=== PATIENT | female | born 1965 | race Caucasian/White ===

== ENCOUNTER → 2018-10-28 | Outpatient (CLI) | payer BC ==
[~2018-10-28] VITALS: Ht 157.5 cm; Wt 61.7 kg
[~2018-10-28] MED LIST: CORAL CALCIUM1 EACH PO; FISH OIL 1,0001 EAC6 PO; FLEXERIL PO; HUMALOG100 UNIT/1 SUBQ; MUCUS ER1200 MG PO; RAMIPRIL5 MG PO; TRESIBA FL100 UNIT/1 SUBQ; WAL-FEX ALLERG180 MG
--- NOTE | ~2018-10-28 | HPC ---
[facility] [place] [address] PAIN MANAGEMENT CONSULTATION Name: PARMJIT MACARIO Room #: REG KRANTHI Bowen#: [id number] Admission: 10/28/18 Attend Phys: Yung Batista DO Discharge: Date of : 67 Report #: [id number] THIS REPORT FOR: //name// CC: Deepti Batista DATE OF SERVICE: 10/28/2018 REFERRING PHYSICIAN: Nurse practitioner, JUNIOR Nugent. CHIEF COMPLAINT: Low back pain and left lower extremity pain with paresthesias. HISTORY OF PRESENT ILLNESS: As you know, the patient is a 53-year-old female who had acute onset of low back pain, left lower extremity pain and presented in July of 2018. She denies specific injury or trauma that may have led to symptom development. She indicates pain has progressively worsened. She sought evaluation through her primary care physician who sent the patient for physical therapy. She has undergone 6 weeks of physical therapy without significant improvement. Due to lack of improvement, the patient was then referred to Neurosurgery to discuss treatment options. It was noted that the patient has L4-L5 grade 2 spondylolisthesis with bilateral pars defects with plans to undergo possible TLIF of L4-L5 and a lumbar ALIF surgery in February to March. 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 She has been referred to our service to discuss possibly undergoing epidural injections under fluoroscopic guidance to address lumbar radicular symptoms and to address ongoing pain issues. The patient indicates the pain is steady and constant. Today, she describes the pain as aching, sharp and tender with intermittent numbness and tingling. She places current pain score 4-5/10. She reports daily average at 6/10. The worst pain has been is 8/10. The patient indicates pain is exacerbated with walking and standing, improves with lying and sitting down. She has been referred to our service to treat lumbar radicular symptoms secondary to the findings at the L4-L5 level in hopes of improving pain as we await possible surgical option in February to March. The patient has undergone flexion and extension films of the lumbar spine, which showed no current pathologic movement, which would mean we do not need to move forward with surgery rapidly, we can treat conservatively initially and if this is ineffective, then look toward surgical options. PAST MEDICAL HISTORY: 1. Diabetes mellitus type 2. 2. Chronic anemia. 3. Hypertension. 4. Hypothyroidism. 5. Seasonal allergies. [address] [address] PAIN MANAGEMENT CONSULTATION Name: AMIRAHPARMJIT Room #: REG CL Andrés#: [id number] Admission: 10/28/18 Attend Phys: Yung Batista DO Discharge: Date of : 67 Report #: [id number] PAST SURGICAL HISTORY: Carpal tunnel release in 1998 and again in 2001, open reduction and internal fixation of ankle in 1996, appendectomy in 1979 and section in 1996 and 2001. SOCIAL HISTORY: The patient denies tobacco or IV or illicit drug use. Admits to one alcoholic beverage per day. She is currently employed as a teacher. She is working, not receiving workmen's compensation nor is trying to obtain as the benefits. She is not in litigation in regards to pain. She is accompanied by her who is present in room today. REVIEW OF SYSTEMS: Positive for fatigue and weakness, wearing corrective eyewear, changes in bowel movement, constipation, painful menses, thyroid disease, heat and cold intolerance, insulin-dependent diabetes, chronic anemia and chronic low back pain. All other review of systems negative per 12-point review of systems other than those listed in history of present illness. PAIN SCORE: Pain impact score 35/70 indicating moderate interference of daily activities secondary to pain. ALLERGIES: No known drug allergies. CURRENT MEDICATIONS: 1. Cyclobenzaprine 10 mg t.i.d. p.r.n. pain. 2. Calcium carbonate 1 tab per day. 3. Valier-3 fish oil 1 tab per day. 4. Guaifenesin 1200 mg once a day. 5. Fexofenadine 180 mg once a day. 6. Ramipril 5 mg per day. 7. Insulin lispro sliding scale. 8. Tresiba 100 units in the morning. IMAGING DATA: MRI lumbar spine obtained 10/21/2018 shows L1-L2, L2-L3, L3-L4 unremarkable. At L4-L5, there is a grade 2 anterolisthesis of L4 on L5 that appears stable. Bilateral L4 pars defects with degenerative changes noted. L5-S1 posterior disk bulge with minimal narrowing, facet arthropathy present. Flexion and extension films of the lumbar spine showed no abnormal motion identified between flexion and extension. PHYSICAL EXAMINATION: VITAL SIGNS: Blood pressure 123/78, pulse 62 and respiratory rate 14 and unlabored. The patient is 100% on room air. Height 5 feet 2 inches tall, weight 136 pounds and BMI calculated 24.9. GENERAL: Well-developed, well-nourished and well-hydrated 53-year-old female, appears her stated age, placing current pain score somewhere between 4-5/10. [address] [address] PAIN MANAGEMENT CONSULTATION Name: PARMJIT MACARIO Room #: REG KRANTHI Bowen#: [id number] Admission: 10/28/18 Attend Phys: Yung Batista DO Discharge: Date of : 67 Report #: [id number] HEENT: Normocephalic and atraumatic. Pupils equal, round and reactive to light. Extraocular muscles are intact. Sclerae nonicteric without injection. NEUROLOGICAL: Cranial nerves 2 through 12 grossly intact. Speech is fluent. The patient deemed a good historian. LUNGS: Clear, without wheezes, rhonchi or rales. CARDIOVASCULAR: Regular. ABDOMEN: Soft and nontender. EXTREMITIES: Show no clubbing, no cyanosis and no edema. MUSCULOSKELETAL: Lower extremity strength appears symmetrical 5/5. Slight giveaway strength noted with hip flexion on the left when compared to the right. Seated straight leg raising negative. Supine straight leg raising positive on the left. Kwasi's test positive left, negative right. Ankle clonus negative. Babinski is negative. Muscle bulk and tone equal and symmetrical in lower extremities. Deep tendon reflexes are 2+/4 patella and Achilles and symmetrical. Lumbar provocation testing is met with increasing axial back pain, no radiation of symptoms. ASSESSMENT: 1. Symptomatic lumbar radiculopathy. 2. Spondylolisthesis of the L4 on L5. 3. Spinal stenosis of the lumbar spine. 4. Facet arthropathy of the lumbar spine. 5. Degeneration of the lumbar spine. 6. Chronic intractable pain. PLAN: 1. Based on today's physical exam and history, the patient has provided the description the patient uses in regards to pain as well as the location of symptoms and the findings of her MRI. Likely source of the patient's pain is a lumbar radiculopathy secondary to the grade 2 spondylolisthesis and subsequent central canal and neural foraminal stenosis at that level. We discussed with the patient conservative treatment options in hopes of improving pain and following was discussed with the patient today on treatment options we can provide to reduce overall pain and potentially improve overall function. We discussed physical therapy, stretching exercises, core strengthening for which the patient has been involved and is continuing to do at home. We discussed medication management, adding neuropathic pain medication and consistent nonsteroidal anti-inflammatories. We discussed lumbar epidural injections for which the patient was referred to our clinic. We also discussed spinal cord stimulator therapy and surgical options for which the patient has plans to undergo surgery in late February or early March. After reviewing the risks and benefits of all proposed treatment options, the patient requested to undergo lumbar epidural injection under fluoroscopic guidance. The patient was advised that third republican payer restrictions require that [address] [address] PAIN MANAGEMENT CONSULTATION Name: PARMJIT MACARIO Room #: REG CLI Andrés#: [id number] Admission: 10/28/18 Attend Phys: Yung Batista DO Discharge: Date of : 67 Report #: [id number] authorization be obtained before the patient could undergo an epidural injection under fluoroscopic guidance. We will make appointment with the patient to return to our clinic at the earliest possible time once we have achieved this authorization for the patient to undergo the epidural injection. We will keep the patient apprised of our progress with the authorization and have her return once this has been completed. 2. No medication changes were made at today's visit. The patient requested that we make no changes in her current therapy, but we will consider this as an option if necessary based on the efficacy of the epidural injection proposed. She is to continue current medication management as prior prescribed. 3. We will see the patient back in followup visit once we have achieved authorization for the patient to undergo a lumbar epidural injection under fluoroscopic guidance. 4. We wish to thank nurse practitioner, Samira Rivero for the referral of this patient to our clinic. We will keep you apprised of her response to treatment as we address lumbar radicular symptoms secondary to the findings at the L4-L5 level. Again, we wish to thank you for the opportunity to see the patient in consultation. By: [id number] Yung Batista DO /nt
[2018-10-28 08:40] VITALS: BP 123/78
--- NOTE | 2018-10-28 09:14 | NUR ---
Pain Clinic Assessment: 1. History of Osteoarthritis: History of Rheumatoid Arthritis: 2. Height: 5 ft. 2 in. 157.5 cm. Weight: 136.0 lb. oz. 61.689 kg. Patient's BMI: 24.9 3. Vital Signs: BP: 123/78 Pulse: 62 Resp: 14 Temp: 02 Sat: 100 ECG Mon: 4. Pain Intensity: 4-5 5. Fall Risk: Dizziness: N Needs help standing or walking: N Fallen in the last 3 months: N Fall risk comments: 6. Patient on Blood Thinner: None 7. History of Hypertension: Y 8. Opioid Therapy greater than 6 weeks: N Opiate Contract Signed: 9. Risk Assessment Tool Provided: 10. Functional Assessment Tool: 11. Recreational Drug Use: Never Drug Type: Tobacco Use: Never Smoker Tobacco Type: Amount or Packs/day: How Many Years: Alcohol Use: Yes Frequency: Daily Quant: 0-1
== END ==
LOC: PAIN 06:56
DX: M54.5 Low back pain (principal); M25.552 Pain in left hip; R10.30 Lower abdominal pain, unspecified; Z79.899 Other long term (current) drug therapy

== ENCOUNTER → 2018-11-03 | Outpatient (CLI) | payer BC ==
[~2018-11-03] VITALS: Ht 157.5 cm; Wt 64.0 kg
[2018-11-03 14:30] VITALS: BP 145/76
--- NOTE | 2018-11-03 14:33 | NUR ---
Pain Clinic Assessment: 1. History of Osteoarthritis: Not Applicable History of Rheumatoid Arthritis: Not Applicable 2. Height: 5 ft. 2 in. 157.5 cm. Weight: 141.0 lb. oz. 63.957 kg. Patient's BMI: 25.8 3. Vital Signs: BP: 145/76 Pulse: 81 Resp: 16 Temp: 02 Sat: 99 ECG Mon: 4. Pain Intensity: 7 5. Fall Risk: Dizziness: N Needs help standing or walking: N Fallen in the last 3 months: N Fall risk comments: 6. Patient on Blood Thinner: None 7. History of Hypertension: Y 8. Opioid Therapy greater than 6 weeks: N Opiate Contract Signed: 9. Risk Assessment Tool Provided: 0-LOW 10. Functional Assessment Tool: 11. Recreational Drug Use: Never Drug Type: Tobacco Use: Never Smoker Tobacco Type: Amount or Packs/day: How Many Years: Alcohol Use: Yes Frequency: Daily Quant: 1
--- NOTE | 2018-11-11 10:54 | HPC ---
[facility] [place] [address] PAIN MANAGEMENT CONSULTATION Name: PARMJIT MACARIO Room #: REG KRANTHI Bowen#: [id number] Admission: 11/03/18 Attend Phys: Yung Batista DO Discharge: Date of : 67 Report #: [id number] THIS REPORT FOR: //name// CC: Deepti Batista DATE OF SERVICE: 11/03/2018 CHIEF COMPLAINT: Low back pain, left lower extremity pain and paresthesias. HISTORY OF PRESENT ILLNESS: As you know, the patient is a 53-year-old female who had acute onset of low back pain, left lower extremity pain that presented in July 2018. Denies specific injury or trauma that led to symptom development. The patient was seen by [facility]surgery of [facility] after undergoing physical therapy for 6 weeks without significant improvement. Neurosurgery evaluated the patient. She was noted to have an L4-L5 grade 2 spondylolisthesis with bilateral pars defects with plans to undergo possible TLIF of L4-L5 level in February or March. She was referred to our clinic to trial more conservative options in hopes of decreasing the necessity of the patient to undergo surgery. She was seen in consultation 10/28/2018, diagnosed with lumbar radiculopathy secondary to spondylolisthesis at the L4-L5 level and established an appointment for today to undergo the first in a series of lumbar epidural injections as we did require authorization to be obtained before the patient could undergo the procedure. We have achieved this authorization and this was the first available appointment for the patient to return to undergo an epidural injection. She is placing pain score today at approximately 7/10, states her pain is constant, sharp, numbness, tingling, exacerbated with walking and standing, improves with sitting and repositioning. She returns today to undergo the first in a series of requested epidural injections under fluoroscopic guidance. ALLERGIES: No known drug allergies. CURRENT MEDICATIONS: Cyclobenzaprine, calcium carbonate, omega 3 fish oil, guaifenesin, fexofenadine, ramipril, insulin. SOCIAL HISTORY: The patient denies tobacco, IV or illicit drug use. She admits to one alcoholic beverage per day. She is currently employed as a teacher. She is working, not receiving workmen's compensation, unaccompanied today. IMAGING: There is no new imaging available. PHYSICAL EXAMINATION: VITAL SIGNS: Blood pressure 145/76, pulse 81, respiratory rate 16 and unlabored, the patient 99% on room air. Height 5 feet 2 inches tall, weight [address] [place] [address] PAIN MANAGEMENT CONSULTATION Name: PARMJIT MACARIO Room #: REG [facility]#: [id number] Admission: 11/03/18 Attend Phys: Yung Batista DO Discharge: Date of : 67 Report #: [id number] pounds, BMI calculated 25.8. GENERAL: Well-developed, well-nourished, well-hydrated 53-year-old female appearing her stated age, placing current pain score at approximately 7/10. HEENT: Normocephalic, atraumatic. Pupils are equal, round, reactive to light. Extraocular muscles are intact. Sclerae are nonicteric without injection. NEUROLOGIC: Cranial nerves 2-12 grossly intact. Speech is fluent. EXTREMITIES: Show no clubbing, no cyanosis, no edema. MUSCULOSKELETAL: There is slight giveaway strength noted again with hip flexion, knee extension on the left when compared to the right. Seated straight leg raising negative. Supine straight leg raising positive on the left. Kwasi's test is positive on the left, negative right. Ankle clonus negative. Babinski is negative. Gait antalgic favoring left lower extremity over right. ASSESSMENT: 1. Symptomatic lumbar radiculopathy. 2. Grade 2 spondylolisthesis of L4 on L5. 3. Spinal stenosis of lumbar spine. 4. Facet arthropathy of the lumbar spine. 5. Lumbar degeneration. 6. Chronic intractable pain. PLAN: 1. The patient has returned today in followup visit having received precertification to undergo the first in a series of lumbar epidural injections under fluoroscopic guidance. The patient and I discussed today the risks and the benefits of this procedure. These risks include but are not necessarily limited to bleeding, bruising, infection, worsening pain, no relief of pain, also risk of temporary or permanent muscle weakness, temporary or permanent nerve damage, possible paralysis, post-dural puncture headache and . The patient states understood and wished to proceed. 2. No medication changes made at today's visit. The patient will continue current medical therapy as previously prescribed. 3. We will see the patient back in followup visit in 31 days. At that time, review the efficacy of today's epidural injection and determine if next in a series of epidural injections might be necessary. PROCEDURE NOTE DESCRIPTION OF PROCEDURE: L5-S1 left paramedian epidural steroid injection under fluoroscopic guidance. This is the first procedure of the first series that the patient is undergoing. After obtaining written consent, the patient was taken back to the fluoroscopy suite, placed in a prone position with pillow under the abdomen to decrease lumbar lordosis. The skin overlying the lumbosacral area was then prepped and [address] [address] PAIN MANAGEMENT CONSULTATION Name: PARMJIT MACARIO Room #: REG KRANTHI Bowen#: [id number] Admission: 11/03/18 Attend Phys: Yung Batista DO Discharge: Date of : 67 Report #: [id number] draped in aseptic fashion. The L5-S1 vertebral interspace was then identified by AP fluoroscopy. The skin and subcutaneous tissue overlying the target site of injection was anesthetized with 3 mL 1% lidocaine. A(n) 20-gauge 3-1/2 inch Tuohy needle was then advanced under fluoroscopic guidance towards the epidural space using a left paramedian approach. The epidural space was identified using loss of resistance to air technique. After negative aspiration for heme or cerebrospinal fluid, a total of 1 mL of Omnipaque was injected. A lumbar epidurogram was confirmed using both AP and lateral fluoroscopy. After negative aspiration for heme or cerebrospinal fluid, 1 mL of solution containing 2 mL 40 mg/mL, 80 mg total triamcinolone, 3 mL of lidocaine 1% was injected in increments. Contrast spread was noted in posterior epidural space. The needle was then retracted approximately half way and needle tract flushed with 1 mL of 1% lidocaine. Needle was then removed. There were no apparent sensory or motor deficits in the lower extremity following the procedure. A sterile bandage was placed over the injection site. The heart rate, pulse, oximetry and blood pressure were continuously monitored after the procedure. There were no apparent complications. The patient tolerated the procedure well and was carefully escorted to the recovery room in stable condition. There were no apparent complications. After meeting discharge criteria, the patient was then discharged home. <ELECTRONICALLY SIGNED> By: Yung Batista DO 11/11/18 [id number] Yung Batista DO /nt
== END | disposition home or self-care (01) ==
LOC: PAIN 06:49
DX: M51.16 Intervertebral disc disorders with radiculopathy, lumbar region (principal); M43.16 Spondylolisthesis, lumbar region; M48.061 Spinal stenosis, lumbar region without neurogenic claudication; M12.88 Other specific arthropathies, not elsewhere classified, other specified site; G89.29 Other chronic pain; Z79.4 Long term (current) use of insulin; Z79.899 Other long term (current) drug therapy